=== PATIENT | female | born 1990 | race Hispanic/Latino ===

== ENCOUNTER 2019-01-15 18:13 | Inpatient (IN) | payer MEDICAID ==
[~2019-01-15] VITALS: Ht 160 cm; Wt 131.5 kg
[2019-01-15 19:09] LABS: BASOPHILS % (AUTO) 0.7 % (0.0-5.0); EOSINOPHILS % (AUTO) 1.3 % (0.0-8.0); HEMATOCRIT 39.8 % (36-48); LYMPHOCYTES % (AUTO) 26.4 % (21.0-51.0); MEAN CORPUSCULAR HEMOGLOBIN 28.2 pg (27.0-33.0); MEAN CORPUSCULAR HGB CONC 33.6 g/dL (32.0-36.0); MONOCYTES % (AUTO) 5.2 % (3.0-13.0); NEUTROPHILS % (AUTO) 66.4 % (40.0-77.0); NUCLEATED RED BLOOD CELLS 0.1 % (0.0-0.19); PLATELET COUNT (AUTO) 317 K/uL (130-400); RED BLOOD CELL COUNT(AUTO) 4.74 MIL/uL (4.00-5.50); RED CELL DISTRIBUTION WIDTH 16.3 % (11.0-15.5); WHITE BLOOD COUNT (AUTO) 8.4 K/uL (4.8-10.8)
[2019-01-15 20:06] LABS: INR 0.92 (0.85-1.15); PARTIAL THROMBOPLASTIN TIME 27.9 SEC (26.3-35.5); PROTHROMBIN TIME 9.7 SEC (9.6-11.6)
[2019-01-15] MEDS ORDERED: PREN-196 PO (20:23)
[2019-01-15] MEDS ORDERED: LACTATED RINGERS 1000ML 1,000 ML IV PRN (20:59)
[2019-01-15] MEDS ORDERED: MEPERIDINE-PF 100 MG/ML SYG IVP PRN (21:00)
[2019-01-15] MEDS ORDERED: ONDANSETRON HCL 4 MG/2 ML VIAL IV PRN ×2 (21:00)
[2019-01-15] MEDS ORDERED: DIAZEPAM 5 MG/ML 2 ML SYG IVP PRN (21:00)
[2019-01-15] MEDS ORDERED: PROMETHAZINE HCL 25 MG/ML 1ML AMPULE IM PRN (21:00)
[2019-01-15] MEDS ORDERED: ZOLPIDEM TARTRATE 5 MG TAB PO SCH (21:00)
[2019-01-15] MEDS ORDERED: MEPERIDINE-PF 50 MG/ML SYG SIVP PRN (21:00)
[2019-01-15 21:16] LABS: APPEARANCE,URINE Clear (CLEAR); BILIRUBIN,URINE Negative (NEGATIVE); COLOR,URINE Yellow (YELLOW); GLUCOSE, URINE (UA) Negative (NEGATIVE); KETONES,URINE 15 mg/dL (NEGATIVE); LEUKOCYTE ESTERASE ,URINE Negative (NEGATIVE); NITRATE,URINE Negative (NEGATIVE); OCCULT BLOOD,URINE Small (NEGATIVE); PROTEIN,URINE Negative (NEGATIVE); UROBILINOGEN,URINE 0.2 mg/dL (0.2-1.0)
[2019-01-15 21:24] LABS: AMPHET/METH SCREEN,URINE NEGATIVE (NEGATIVE); BARBITURATE SCREEN, URINE NEGATIVE (NEGATIVE); BENZODIAZEPINES SCREEN,URINE NEGATIVE (NEGATIVE); CANNABINOID SCREEN,URINE NEGATIVE (NEGATIVE); COCAINE SCREEN,URINE NEGATIVE (NEGATIVE); OPIATE SCREEN,URINE NEGATIVE (NEGATIVE); PHENCYCLIDINE SCREEN,URINE NEGATIVE (NEGATIVE)
[2019-01-15 21:28] LABS: BACTERIA,URINE Rare /HPF (None Seen); MUCUS,URINE Few LPF (None Seen); WBC,URINE 0-1 /HPF (0-1)
[2019-01-15] MEDS ORDERED: ACETAMINOPHEN EXTRA STRENGTH 500 MG TABLET PO SCH (22:15)
[2019-01-16] MEDS ORDERED: MISOPROSTOL 200 MCG TABLET VG SCH ×3 (05:00→05:50)
[2019-01-16] MEDS ORDERED: OXYTOCIN-LR 20 UNITS/1000 ML 1,000 ML IV ONE (05:29)
[2019-01-16] MEDS ORDERED: MISOPROSTOL 200 MCG TABLET ONE (06:07)
[2019-01-16 07:00] LABS: RAPID PLASMA REAGIN NONREACTIVE (NONREACTIVE)
[2019-01-19 08:11] LABS: HEPATITIS Bs ANTIGEN SCREEN P Negative (Negative)
== END 2019-01-16 13:00 | disposition home or self-care (01) | DRG 564 ==
LOC: EDH 18:13 → EDHIP 18:14 → OBSVTOIN 18:14 → LDH 20:15
PROVIDERS: ADMIT Specialist; ATTEND Specialist
PROC: 10D17Z9 Manual Extraction of Products of Conception, Retained, Via Natural or Artificial Opening (ICD-10-PCS; principal; 2019-01-15)
DX: O02.1 Missed abortion (principal); Z3A.16 16 weeks gestation of pregnancy
CPT/HCPCS: 36415; 76805; 80305; 81001; 85025; 85384; 85610; 85730; 86592; 86701; 86850; 86900; 86901; 87340; 87390; 88305; A4606; G0378; J2590

== ENCOUNTER 2022-08-25 12:42 | Emergency (ER) | payer MEDICAID ==
[~2022-08-25] VITALS: Ht 154.9 cm; Wt 136.1 kg
[~2022-08-25 12:42] MED LIST: PREN-196 PO
[2022-08-25 13:06] LABS: BILIRUBIN,URINE NEGATIVE (NEGATIVE); COLOR,URINE YELLOW (YELLOW); GLUCOSE, URINE (UA) NEGATIVE (NEGATIVE); KETONES,URINE NEGATIVE (NEGATIVE); LEUKOCYTE ESTERASE ,URINE 500 Leu/uL (NEGATIVE); NITRATE,URINE NEGATIVE (NEGATIVE); OCCULT BLOOD,URINE SMALL (NEGATIVE); PROTEIN,URINE 50 mg/dL (NEGATIVE); UROBILINOGEN,URINE 0.2 mg/dL (0.2-1.0)
[2022-08-25 13:07] LABS: HCG,QUALITATIVE URINE POSITIVE (NEGATIVE)
[2022-08-25 13:09] LABS: APPEARANCE,URINE HAZY (CLEAR)
[2022-08-25 13:12] LABS: BASOPHILS % (AUTO) 0.6 % (0.0-5.0); EOSINOPHILS % (AUTO) 2.1 % (0.0-8.0); HEMATOCRIT 37.2 % (36-48); LYMPHOCYTES % (AUTO) 29.2 % (21.0-51.0); MEAN CORPUSCULAR HEMOGLOBIN 24.5 pg (27.0-33.0); MEAN CORPUSCULAR HGB CONC 30.9 g/dL (32.0-36.0); MEAN CORPUSCULAR VOLUME 79.3 fL (79-99); NEUTROPHILS % (AUTO) 59.8 % (40.0-77.0); PLATELET COUNT (AUTO) 340 K/uL (130-400); RED BLOOD CELL COUNT(AUTO) 4.69 MIL/uL (4.00-5.50); RED CELL DISTRIBUTION WIDTH 16.8 % (11.0-15.5)
[2022-08-25 13:13] LABS: BACTERIA,URINE FEW /HPF (None Seen); MUCUS,URINE FEW LPF (None Seen); SQUAMOUS EPITHELIAL CELL,UR MOD /HPF (0-2); WBC,URINE TNTC /HPF (0-1)
[2022-08-25 13:22] LABS: CARBON DIOXIDE 37 mmol/L (21-32); CHLORIDE 104 mmol/L (101-111); CREATININE 0.6 mg/dL (0.5-1.5); GLOMERULAR FILTR. RATE CALC 122 mL/min (>90); GLUCOSE,RANDOM 89 mg/dL (70-105); POTASSIUM 3.9 mmol/L (3.5-5.1); SODIUM SERUM 139 mmol/L (136-145); UREA NITROGEN, BLOOD 9 mg/dL (7-18)
[2022-08-25] MEDS ORDERED: ONDANSETRON 4MG INJ IVP ONE (13:30)
[2022-08-25 13:32] LABS: ALANINE AMINOTRANSFERASE 32 U/L (12-78); ALBUMIN 2.3 g/dL (3.5-5.0); ASPARTATE AMINOTRANSFERASE 18 U/L (10-37); TOTAL PROTEIN, SERUM 7.2 g/dL (6.0-8.3)
[2022-08-25 13:44] LABS: LIPASE < 50 U/L (114-286)
[2022-08-25] MEDS ORDERED: MAG/ALUM/SIMETH 30 ML UDCUP PO ONE (14:00)
[2022-08-25] MEDS ORDERED: LIDOCAINE HCL 2% VISCOUS 15 ML UDCUP PO ONE (14:00)
[2022-08-25] MEDS ORDERED: ONDANSETRON ODT 4MG TAB ONE (14:52)
[2022-08-25 15:00] VITALS: BP 133/88
[2022-08-25] MEDS ORDERED: ONDANSETRON ODT 4MG TAB SL ONE (15:00)
[2022-08-25] MEDS ORDERED: ONDA4TAB10 PO (15:06)
[2022-08-25] MEDS ORDERED: CEPH500T PO (15:06)
== END 2022-08-25 15:15 | disposition home or self-care (01) ==
LOC: EDH 12:42
DX: N39.0 Urinary tract infection, site not specified (principal); R11.2 Nausea with vomiting, unspecified; Z32.01 Encounter for pregnancy test, result positive; Z79.899 Other long term (current) drug therapy; Z87.19 Personal history of other diseases of the digestive system
CPT/HCPCS: 36415; 80053; 81001; 81025; 83690; 85025; 87088

== ENCOUNTER 2022-10-25 21:19 | Emergency (ER) | payer MEDICAID ==
[~2022-10-25] VITALS: Ht 157.5 cm; Wt 128.8 kg
[~2022-10-25 21:19] MED LIST changes: +CEPH500T PO; +ONDA4TAB10 PO
[2022-10-25 21:50] LABS: BASOPHILS % (AUTO) 0.5 % (0.0-5.0); EOSINOPHILS % (AUTO) 1.1 % (0.0-8.0); HEMATOCRIT 33.4 % (36-48); LYMPHOCYTES % (AUTO) 22.5 % (21.0-51.0); MEAN CORPUSCULAR HEMOGLOBIN 24.4 pg (27.0-33.0); MEAN CORPUSCULAR HGB CONC 31.1 g/dL (32.0-36.0); MEAN CORPUSCULAR VOLUME 78.2 fL (79-99); MONOCYTES % (AUTO) 6.6 % (3.0-13.0); PLATELET COUNT (AUTO) 247 K/uL (130-400); RED BLOOD CELL COUNT(AUTO) 4.27 MIL/uL (4.00-5.50); RED CELL DISTRIBUTION WIDTH 18.2 % (11.0-15.5); WHITE BLOOD COUNT (AUTO) 6.4 K/uL (4.8-10.8)
[2022-10-25 21:53] LABS: APPEARANCE,URINE CLOUDY (CLEAR); BILIRUBIN,URINE NEGATIVE (NEGATIVE); COLOR,URINE YELLOW (YELLOW); GLUCOSE, URINE (UA) NEGATIVE (NEGATIVE); KETONES,URINE NEGATIVE (NEGATIVE); LEUKOCYTE ESTERASE ,URINE NEGATIVE Leu/uL (NEGATIVE); NITRATE,URINE NEGATIVE (NEGATIVE); OCCULT BLOOD,URINE LARGE (NEGATIVE); PROTEIN,URINE 30 mg/dL (NEGATIVE)
[2022-10-25 22:10] LABS: CREATININE 0.5 mg/dL (0.5-1.5); POTASSIUM 3.8 mmol/L (3.5-5.1)
[2022-10-25 22:18] LABS: MUCUS,URINE RARE LPF (None Seen); RBC,URINE TNTC /HPF (0-1); SQUAMOUS EPITHELIAL CELL,UR RARE /HPF (0-2)
[2022-10-25 22:36] LABS: TOTAL PROTEIN, SERUM 7.2 g/dL (6.0-8.3)
[2022-10-26] MEDS: MORPHINE 4 MG SYG IVP ONE ×2 (01:52→04:03)
[2022-10-26] MEDS: ONDANSETRON 4MG INJ IVP ONE ×2 (01:52→04:03)
[2022-10-26] MEDS ORDERED: DOXYCYCLINE HYCLATE 100 MG TABLET PO SCH (06:00)
[2022-10-26] MEDS ORDERED: DOXY-469 PO (06:24)
[2022-10-26] MEDS ORDERED: IBUP-2070 PO (06:24)
[2022-10-26 06:37] VITALS: BP 114/68
== END 2022-10-26 06:47 | disposition home or self-care (01) ==
LOC: EDH 21:19
DX: O03.9 Complete or unspecified spontaneous abortion without complication (principal); Z79.899 Other long term (current) drug therapy; Z90.49 Acquired absence of other specified parts of digestive tract
CPT/HCPCS: 99285; 80053; 84702; 85025; 86850; 86900; 86901; 83605; 81001; 36415; 76805; 76817; J2405; J2270